=== PATIENT | female | born 1955 | race Caucasian/White ===

== ENCOUNTER → 2021-05-23 | Outpatient (CLI) | payer MEDICARE | LOC: EMI 14:28 | DX: R41.89 Other symptoms and signs involving cognitive functions and awareness (principal); R42 Dizziness and giddiness; H49.00 Third [oculomotor] nerve palsy, unspecified eye | CPT/HCPCS: 70543; 70553; A9577 ==

== ENCOUNTER → 2021-08-25 | Outpatient (CLI) | payer MEDICARE | LOC: EMI 08-12 08:00 | DX: M48.07 Spinal stenosis, lumbosacral region (principal); M51.37 Other intervertebral disc degeneration, lumbosacral region; M47.816 Spondylosis without myelopathy or radiculopathy, lumbar region | CPT/HCPCS: 72141; 72148 ==